=== PATIENT | female | born 2005 | race Caucasian/White ===

== ENCOUNTER 2025-02-04 23:21 | Emergency (ER) | payer OTHER ==
[~2025-02-04] VITALS: Ht 165.1 cm; Wt 59.0 kg
[2025-02-04 23:24] VITALS: O2SAT 99
[2025-02-05 00:56] LABS: BASOPHILS % 0.6 % (0.0-2.0); EOSINOPHILS % 1.0 % (0.0-5.0); HEMATOCRIT. 42.8 % (36.0-48.0); HEMOGLOBIN. 14.6 g/dL (12.0-16.0); LYMPHOCYTES % 24.4 % (20.0-50.0); MEAN PLATELET VOLUME 8.5 fl (7.4-10.4); MONOCYTES % 8.2 % (2.0-8.0); NEUTROPHILS % 65.8 % (40.0-76.0); PLATELET 296 x1000/uL (130-400); RED BLOOD CELL COUNT 4.64 mill/uL (4.2-5.4); RED CELL DISTRIBUTION WIDTH 12.2 % (11.6-14.6)
[2025-02-05 01:04] LABS: HCG SCREEN NEGATIVE
[2025-02-05 01:08] LABS: CREATININE 0.9 mg/dL (0.6-1.0)
[2025-02-05 01:09] LABS: UREA NITROGEN BLOOD 11 mg/dL (9-23)
[2025-02-05 01:10] LABS: ASPARTATE AMINOTRANSFERASE 17 IU/L (<34)
[2025-02-05 01:11] LABS: BILIRUBIN DIRECT 0.2 mg/dL (<=3.0); BILIRUBIN TOTAL 0.5 mg/dL (0.1-1.0); PROTEIN TOTAL 7.6 g/dL (6.0-8.3)
[2025-02-05] MEDS ORDERED: IBUP-2028 MT (02:32)
[2025-02-05 02:41] VITALS: BP 108/80; PULSE 55; RESP 18; TEMP 36.9; O2SAT 99
== END 2025-02-05 02:42 | disposition home or self-care (01) ==
LOC: ER 23:21
DX: R07.89 Other chest pain (principal); Z79.899 Other long term (current) drug therapy
CPT/HCPCS: 36415; 71045; 80048; 80076; 84703; 85025; 93005; 99285